=== PATIENT | male | born 1985 | race American Indian/Alaskan Native ===

== ENCOUNTER 2017-11-30 17:39 | Emergency (ER) | payer SELFPAY ==
[2017-11-30] MEDS ORDERED: BENADRYL IM PRN (17:59)
--- NOTE | 2017-11-30 18:19 | Emergency Department Report ---
HPI - General Time Seen by Provider: 11/30/17 17:57 - HPI HPI: Room 26 The patient is a 32-year-old male presenting with chief complaint of intoxication. The patient was found lying in the driveway of someone's home by the police. The patient was behaving in an intoxicated fashion so subsequently PD had the patient transported to the hospital for evaluation. The responding engine placed a splint on the patient's left lower extremity but there was no documentation as to why. The patient has been ambulating with splint in place. The patient appears extremely intoxicated and emotionally labile. When asked if anything is bothering him the patient states "everything." Location: Mental state Duration: Unknown Quality: Intoxicated Severity: Moderately severe Modifying factors: [see above] Context: [see above] Mode of transportation: [not driving] ED Past Medical Hx - Past Medical History Additional medical history: Unknown. Patient refuses to answer - Surgical History Additional Surgical History: Unknown. Patient refuses to answer - Family History Family history: no significant - Social History Smoking Status: Unknown if ever smoked ED Review of Systems ROS: Stated complaint: ETOH Other details as noted in HPI Comment: Unobtainable due to pts medical conditions Physical Exam - Physical Exam Physical Exam: GENERAL: The patient is well-developed well-nourished male lying on stretcher appearing obviously intoxicated and verbally abusive at times. [] HEENT: Normocephalic. Atraumatic. Extraocular motions are intact. Patient has moist mucous membranes. NECK: Supple. Trachea midline CHEST/LUNGS: There is no respiratory distress noted. HEART/CARDIOVASCULAR: Regular. There is tachycardia. There is no gallop rub or murmur. ABDOMEN: There is no abdominal distention. SKIN: There is no rash. There is no edema. There is no diaphoresis. NEURO: The patient is awake, labile and uncooperative. Patient moves all extremities well. MUSCULOSKELETAL: There is no limitation range of motion. ED Course - Reevaluation(s) Reevaluation #1: 12/01/17 00:11 Updated patient current status. Explained that his alcohol level is too high to be discharged alone. Patient informed if he can have a family member come pick him up he can be discharged to them; Otherwise, he will be discharged when his alcohol level is measured at less than 0.08. Patient verbalized understanding. Patient calm ED Medical Decision Making - Lab Data Result diagrams: 11/30/17 18:11 11/30/17 18:11 - Differential Diagnosis alcohol intoxication, polysubstance abuse, hypoglycemia, encephalopathy Critical care attestation.: If time is entered above; I have spent that time in minutes in the direct care of this critically ill patient, excluding procedure time. ED Disposition Clinical Impression: Alcohol intoxication Disposition: DC-01 TO HOME OR SELFCARE Is pt being admited?: No Does the pt Need Aspirin: No Condition: Stable Referrals: PRIMARY CARE, [Primary Care Provider] - 3-5 Days Time of Disposition: 00:50 (d/c to family or when etoh <0.08)
[2017-11-30 18:20] LABS: Basophils # (Auto) 0.1 K/mm3 (0.0-0.1); Basophils % (Auto) 1.1 % (0.0-1.8); Eosinophils # (Auto) 0.3 K/mm3 (0.0-0.4); Eosinophils % (Auto) 2.9 % (0.0-4.3); Hematocrit 39.6 % (35.5-45.6); Hemoglobin 13.2 gm/dl (11.8-15.2); Lymphocytes # (Auto) 2.8 K/mm3 (1.2-5.4); Lymphocytes % (Auto) 25.5 % (13.4-35.0); Mean Corpuscular HGB Conc 33 % (32-34); Mean Corpuscular Hemoglobin 30 pg (28-32); Mean Corpuscular Volume 90 fl (84-94); Monocytes # (Auto) 0.7 K/mm3 (0.0-0.8); Monocytes % (Auto) 6.4 % (0.0-7.3); Platelet Count 389 K/mm3 (140-440); Red Blood Count 4.38 M/mm3 (3.65-5.03); Red Cell Distribution Width 13.6 % (13.2-15.2)
[2017-11-30 18:38] LABS: Creatine Kinase MB 1.6 ng/mL (0.0-4.0)
[2017-11-30 18:40] LABS: Alanine Aminotransferase 14 units/L (7-56); Albumin 4.7 g/dL (3.9-5); BUN/Creatinine Ratio 9; Blood Urea Nitrogen 9 mg/dL (9-20); Calcium 9.9 mg/dL (8.4-10.2); Hemolysis Index 10
[2017-11-30] MEDS ORDERED: NACL 0.9% 1000 ML 1,000 ML IV ONE (18:49)
[2017-11-30] MEDS ORDERED: HALDOL IM PRN (18:49)
[2017-11-30 18:59] LABS: Amphetamine Screen,Urine PRESUMPTIVE NEGATIVE; Benzodiazepines Screen,Urine PRESUMPTIVE NEGATIVE; Cannabinoid Screen,Urine PRESUMPTIVE NEGATIVE; Cocaine Screen,Urine PRESUMPTIVE NEGATIVE; Methadone Screen,Urine PRESUMPTIVE NEGATIVE; Opiate Screen,Urine PRESUMPTIVE NEGATIVE
[2017-11-30] MEDS ORDERED: VITAMIN B-1 100 MG, FOLVITE 1 MG, INFUVITE 10 ML, MAGNESIUM SULFATE 2 GM in NACL 0.9% 1... IV ONE (19:00)
[2017-11-30] MEDS ORDERED: KETAMINE HCL IV ONE ×2 (19:20→20:00)
[2017-12-01 10:41] VITALS: BP 137/85
== END 2017-12-01 10:41 | disposition home or self-care (01) ==
LOC: ED 17:39
DX: F10.129 Alcohol abuse with intoxication, unspecified (principal)
CPT/HCPCS: 36415; 80053; 80307; 82550; 82553; 84484; 85025; 96365; 96372; 99284; G0480; J1200; J1630; J3411; J3475; J7030; 80320